=== PATIENT | male | born 1990 | race African-American/Black ===

== ENCOUNTER 2018-11-02 02:35 | Emergency (ER) | payer OTHER, SELFPAY ==
[2018-11-02] MEDS ORDERED: Ondansetron ODT 4 MG TAB ONE (03:02)
[2018-11-02] MEDS ORDERED: Ketorolac Tromethamine 60 MG/2 ML VIAL ONE (03:02)
== END 2018-11-02 03:15 | disposition home or self-care (01) ==
LOC: BURERS 02:35
DX: S06.0X9A Concussion with loss of consciousness of unspecified duration, initial encounter (principal); G43.909 Migraine, unspecified, not intractable, without status migrainosus; W50.0XXA Accidental hit or strike by another person, initial encounter
CPT/HCPCS: 96372; J1885; Q0162

== ENCOUNTER 2019-01-26 06:01 | Emergency (ER) | payer BC ==
[2019-01-26] MEDS ORDERED: Ketorolac Tromethamine 60 MG/2 ML VIAL ONE (07:09)
--- NOTE | 2019-01-26 09:05 | CT ---
CT LUMBAR SPINE WITHOUT CONTRAST: Date: 01/26/19 INDICATION: 23-year-old male status post fall from ladder with low back pain. COMPARISON: CT abdomen and pelvis dated 04/13/14. FINDINGS: There is no acute fracture or subluxation evident. Spinal alignment is normal. The retroperitoneal an d paravertebral soft tissues are normal appearing. At the L5-S1 level, there is an asymmetric moderate left facet joint degenerative change and a mild b road based bulge inducing at least mild left neural foraminal narrowing. At L4-5, there is a broad based bulge and facet hypertrophy, but no appreciable central canal or neur al foraminal narrowing. At L3-4, there is a mild broad based bulge, but no appreciable central canal or neural foraminal narr owing. At L2-3, there is no appreciable central canal or neural foraminal narrowing. At L1-L2, there is a mild broad based disc osteophyte complex, but no appreciable central canal or ne ural foraminal narrowing. At T12-L1, there is no appreciable central canal or neural foraminal narrowing. IMPRESSION: 1. No acute fracture or subluxation demonstrated. 2. Mild disc degenerative disease and facet osteoarthritic change of the lumbar spine, most pronounc ed at L5-S1 and on the left. There is mild left neural foraminal narrowing at L5-S1. POS: BH
== END 2019-01-26 07:08 | disposition home or self-care (01) ==
LOC: BURERS 06:01
DX: M54.6 Pain in thoracic spine (principal); M54.5 Low back pain; F17.210 Nicotine dependence, cigarettes, uncomplicated; G43.909 Migraine, unspecified, not intractable, without status migrainosus; W11.XXXA Fall on and from ladder, initial encounter
CPT/HCPCS: 72131; 96372; J1885